=== PATIENT | female | born 1960 | race Two or more races ===

== ENCOUNTER 2020-06-26 11:31 | Inpatient (IN) | payer OTHER ==
[~2020-06-26] VITALS: Ht 167.6 cm; Wt 90.7 kg
[2020-06-26] MEDS ORDERED: LANTUS SOL100 UNIT/1 (12:17)
[2020-06-26] MEDS ORDERED: HUMALOG100 UNIT/2 (12:18)
[2020-06-26] MEDS ORDERED: GABAPENTIN100 M2 (12:18)
[2020-06-26] MEDS ORDERED: ZOLOFT20 MG/1 ML (12:19)
[2020-06-26] MEDS ORDERED: LOTENSIN20 MG (12:19)
[2020-06-26] MEDS ORDERED: ZOCOR20 MG (12:19)
[2020-06-26] MEDS ORDERED: ALDACTONE50 MG (12:20)
[2020-06-26] MEDS ORDERED: LASIX20 MG (12:20)
--- NOTE | 2020-06-26 12:24 | NUR ---
SE RECIBE PACIENTE FEMENINA ALERTA Y ORINTADA EN LAS EVONNE ESFERAS. PACIENTE REFIERE DESDE HACE VARIOS LOMELI COMENZO CON INFLAMACION AN AMBAS PIERNAS Y DESDE FELICIA CON DOLOR ABDOMINAL Y DIARREAS. PACIENTE CON HISTORIAL DE CIRROSIS Y CANCER DE MATRIZ. SE MIDEN SIGNOS VITALES Y SE UBICA EN OBSERVACION.
--- NOTE | 2020-06-26 13:35 | NUR ---
PACIENTE EVALUADA POR DR. ARMENTA. SE ENCUENTRA ALERTA Y ORIENTADA Y DEVIDAMENTE IDENTIFICADA. SE ORIENTA PACIENTE SOBRE TRATAMIENTO. RN X. AGUILAR REALIZA KATLYN DE MUESTRAS Y LAS ENVIA A LABORATORIO. SE REALIZA EKG. PACIENTE SE MANTIENE BAJO OBSERVACION.
--- NOTE | 2020-06-26 14:56 | NUR ---
PACIENTE REHUSA LORENA CONTRASTE GASTROVIEW, REFIERE "NO VOY A PODER LORENA TODO HANSEL LIQUIDO". DR ARMENTA NOTIFICADO.
--- NOTE | 2020-06-26 16:02 | NUR ---
SE ORIENTA A PACIENTE PARA REALIZA INSERCION DE WOODS CATSBAA, AL MOMENTO PACIENTE REFIERE QUERER UN LUGAR MAS PRIVADO, SE ORIENTA A LA MISMA EN LA BREVEDAD POSIBLE, SE UBICARA A LA MISMA EN CUARTO DE OGY PARA REALIZAR PROCEDIMIENTO, AMRITA Y PACIENTE NO REIFERE QUEJA ALGUNA.
--- NOTE | 2020-06-26 17:17 | NUR ---
SE REALIZA INSERCION DE WOODS CATETHER BAJO MEDIDAS ASEPTICAS. SE ORIENTA A PACIENTE SOBRE EL PROCEDIMIENTO.
--- NOTE | 2020-06-26 19:14 | NUR ---
5:30PM SE REALIZA BUSQUEDA DE UNIDAD DE MAXI PARA TRANFUNDIR A PACIENTE FRANCESCO MANNING CUAL TIENE ORDEN DE ADMINISTRAR 4 UNIDADES DE MAX[place] FRACCIONADAS PARA TRANFUNDIR. AL MOMENTO DE LLEGAR A LABORATORIO SRA. VICTORIA REALIZA ENTREGA, PHILIPP AL MOMENTO LAS UNIDADES DE MAXI LLEGADAS A LABORATORIO SON UNIDADES DE MAXI COMPLETAS. DE MANERA INMEDIATA SE NOTIFICA A SRA. VICTORIA QUE LA ORDEN ES CONTRADICTORIA A LAS UNIDADES DE MAXI LLEGADAS A LABORATORIO. AL MOMENTO NO SE COMPLETA LA ENTREGA DE LA UNIDAD DE PRBC YA QUE NO ES LO ORDENADO POR DR. ARMENTA. 6:30PM SE NOTIFICA A DR. LITA LOPEZ, YA QUE LA PACIENTE ESTA CONSULTADA CON EL MISMO Y SE NOTIFICA LA SUCEDIDO CON LAS UNIDADES DE MAXI LLEGADAS A LABORATORIO. DR. CORONA CUAL ORDENA CAMBIAR LA ORDEN Y ADMINISTRAR LAS 3 UNIDADES DE MAXI COMPLETAS LLEGADAS A LABORATORIO Y QUE CANCELE LA ORDEN DE DR. ARMENTA EN EL SISTEMA. 6:47PM SE REALIZA ORDEN MEDICA EN SISTEMA PARA ADMINISTRAR 3 UNIDADES DE PRBC COMPLETAS PARA TRANFUNDIR Y SE CANCELA LA ORDEN DE DR. ARMENTA. 6:50PM SE REALIZA RECOGIDO DE UNIDAD DE MAXI EN LABORATORIO CON SRA. VICTORIA DE UNIDAD DE MAX[place] COMPLETA Y SE NOTIFICA A LA MISMA EL CAMBIO DE LA ORDEN MEDICA LA CUAL EMITIO EL DR. GAO. . AL MOMENTO LA MISMA REFIERE NO DESMOND PROBLEMA Y SE PROCEDE CON LA ENTREGA DE LA UNIDAD [id number]. 6:55PM SE REALIZA KATLYN DE SIGNOA VITALES. 7:00PM SE REALIZA ADMINISTRACION DE UNIDAD DE PRBC [id number]. PACIENTE PENDIENTE TERMINAR UNIDAD DE MAXI Y MONITOREO DANAY DE LA ADMINISTRACION.
--- NOTE | 2020-06-26 19:43 | NUR ---
5:30PM SE REALIZA BUSQUEDA DE UNIDAD DE MAXI PARA TRANFUNDIR A PACIENTE FRANCESCO MANNING CUAL TIENE ORDEN DE ADMINISTRAR 4UNIDADES DE MAXI FRACCIONADAS PARA TRANFUNDIR. AL MOMENTO DE LLEGAR A LABORATOTIO SRA. VICTORIA REALIZA ENTREGA, PHILIPP AL MOMENTO LAS UNIDADES DE MAXI LLEGADAS A LABORATORIOSON UNIDADES DE MAXI COMPLETAS. DE MANERA INMEDIATA SE NOTIFICA A SRA. VICTORIA QUE LA ORDEN ES CONTRADICTORIA A LAS UNIDADES DE MAIX LLEGADAS A LAVORATORIO. AL MOMENTO NO SE COMPLETA LA ENTREGA DE LA UNIDAD DE PRBC YA QUE NO ES LO ORDENADO POR DR. ARMENTA. 6:30PM SE NOTIFICA A DR. LITA LOPEZ, YA QUE LA PACIENTE ESTA CONSULTADA CON EL MISMO Y SE NOTIFICA LA SUCEDIDO CON LAS UNIDADES DE MAXI LLEGADAS A LABORATORIO. DR. GAO CUAL ORDENA CAMBIAR LA ORDEN Y ADMINISTRAR LAS 3 UNIDADES DE MAXI COMPLETAS LLEGADAS A LABORATORIO Y QUE CANCELE LA ORDEN DE DR. MARQUEZIEN EL SISTEMA. 6:47PM SE REALIZA ORDEN MEDICA EN SISTEMA PARA ADMINISTRAR 3 UNIDADES DE MAXI DE PRBC COMPLETAS PARA TRANFUNDIR Y SE CANCELA LA ORDEN DE DR. ARMENTA. 6:50PM SE REALIZA RECOGIDO DE UNIDAD DE MAXI EN LABORATORIO CON LA SRA. VICTORIA DE UNIDAD DE MAXI COMPLETA Y SE NOTIFICA A LA MISMA EL CAMBIO DE LA ORDEN MEDICA LA CUAL EMITIO EL DR. GAO. AL MOMENTO LA MISMA REFIERE NO DESMOND PROBLEMAY SE PROCEDE CON LA UNIDAD DE MAXI [id number]. 6:55PM SE REALIZA KATLYN DE SIGNOA VITALES. 7:00PM SE REALIZA ADMINISTRACION DE UNIDAD DE MAXI DE PRBC [id number]. PACIENTE PENDIENTE DE TERMINAR UNIDAD DE MAXI Y MONITOREO DANAY DE LA ADMINISTRACION.
--- NOTE | 2020-06-26 20:19 | NUR ---
SE REALIZA MONITOREO DANAY DE PACIENTE Y KATLYN DE SIGNOS VITALES CADA 15 MINUTOS GLORIA LOS MERLENE 45MINUTOS. PACIENTE AL MOMENTO NO REFIERE QUEJA ALGUNA.
== END 2020-07-01 17:30 | disposition left against medical advice (07) | DRG 812 ==
LOC: ER 11:31 → MEDI 20:25 → SURG 20:25 → MEDI 06-27 16:33
PROVIDERS: ADMIT Internal Medicine; ATTEND Internal Medicine
PROC: BW21ZZZ Computerized Tomography (CT Scan) of Abdomen and Pelvis (ICD-10-PCS; 2020-06-26)
PROC: 30233N1 Transfusion of Nonautologous Red Blood Cells into Peripheral Vein, Percutaneous Approach (ICD-10-PCS; principal; 2020-06-27)
PROC: 4A12X4Z Monitoring of Cardiac Electrical Activity, External Approach (ICD-10-PCS; 2020-06-28)
PROC: 02HV33Z Insertion of Infusion Device into Superior Vena Cava, Percutaneous Approach (ICD-10-PCS; 2020-06-30)
DX: D64.89 Other specified anemias (principal); R18.8 Other ascites; J90 Pleural effusion, not elsewhere classified; K74.69 Other cirrhosis of liver; E11.9 Type 2 diabetes mellitus without complications; E03.9 Hypothyroidism, unspecified; Z20.822 Contact with and (suspected) exposure to COVID-19; I12.9 Hypertensive chronic kidney disease with stage 1 through stage 4 chronic kidney disease, or unspecified chronic kidney disease; N18.32 Chronic kidney disease, stage 3b; I87.2 Venous insufficiency (chronic) (peripheral); E87.6 Hypokalemia; R31.9 Hematuria, unspecified; D69.49 Other primary thrombocytopenia; Z79.4 Long term (current) use of insulin